=== PATIENT | female | born 1975 | race Caucasian/White ===

== ENCOUNTER 2020-05-22 08:49 | Outpatient (CLI) | payer BC, SELFPAY ==
--- NOTE | ~2020-05-22 | MM_ITS ---
EXAMINATION: MM screening [facility] BI w sandor HISTORY: Screening TECHNIQUE: Craniocaudal and mediolateral oblique 3-D tomosynthesis images were obtained and synthetic 2-D images were generated. CAD analysis was submitted and interpreted. COMPARISON: Comparison to multiple prior studies sequentially, with oldest reviewed study dated 03/2017. BREAST PARENCHYMAL COMPOSITION: The breasts are heterogeneously dense, which may obscure small masses . FINDINGS: There is no evidence of suspicious mass, calcification, or architectural distortion to sugg est malignancy in either breast. There has been no suspicious interval change. IMPRESSION: 1. No mammographic evidence of malignancy. 2. Recommend routine screening mammography in one year. BI-RADS Category 1: Negative Reviewed, dictated and finalized at location A.
== END 2020-05-22 08:50 | disposition home or self-care (01) ==
LOC: ANHIMG 08:53
PROVIDERS: PCP Internal Medicine; Visit Provider Obstetrics & Gynecology
DX: Z12.31 Encounter for screening mammogram for malignant neoplasm of breast (principal)
CPT/HCPCS: 77063; 77067

== ENCOUNTER 2021-02-03 08:28 | Outpatient (CLI) | payer BC, SELFPAY ==
--- NOTE | 2021-02-03 08:30 | ECG_ITS ---
Measurements Intervals [place] Rate: 70 P: 42 SD: 180 QRS: 53 QRSD: 93 T: 55 QT: 393 QTc: 425 Interpretive Statements SINUS RHYTHM BORDERLINE R WAVE PROGRESSION, ANTERIOR LEADS BORDERLINE T WAVE ABNORMALITY- ANTERIOR LEADS BORDERLINE ECG Electronically Signed On 02-03-2021 8:51:44 CDT by Patrice Levy D.O.
== END 2021-02-03 08:29 | disposition home or self-care (01) ==
LOC: ANHSURGERY 08:32
PROVIDERS: PCP Internal Medicine; Visit Provider Obstetrics & Gynecology
DX: I10 Essential (primary) hypertension (principal); Z01.818 Encounter for other preprocedural examination; R94.31 Abnormal electrocardiogram [ECG] [EKG]
CPT/HCPCS: 93005

== ENCOUNTER 2021-02-05 00:44 | Day surgery (SDC) | payer BC, SELFPAY ==
[2021-01-23 14:29] VITALS: BMI 23.3
[2021-02-05 10:11] VITALS: BP 120/74; PULSE 72; RESP 20; TEMP 36.7; O2SAT 100
[2021-02-05] MEDS: ACETAMINOPHEN 500 MG TABLET 1000 MG PO (10:17)
--- NOTE | 2021-02-05 10:49 | WPDANESEPPF ---
Anes - Initial Pre Proc Eval Procedure: Operation Date: 02/05/21 12:00 Proposed Procedures p Laparoscopic Bilateral Tubal Sterilization With Fallopian Rings, Removal Of Nexplanon - Damian Keane MD Date/Time: 02/05/21 10:49 Surgeon: Damian Keane MD Pre Op Diagnosis: Desires Sterilization Patient Data Age: 45 Gender: F Height: 1.57 m Weight: 57.4 kg Last Vital Signs Temp 36.7 C 02/05/21 10:11 Pulse 72 02/05/21 10:11 Resp 20 02/05/21 10:11 BP 120/74 02/05/21 10:11 Pulse Ox 100 02/05/21 10:11 Allergies Allergy/AdvReac Type Severity Reaction Status Date / Time No Known Allergies Allergy Mild Unverified 02/05/21 10:09 Home Medications Medication Instructions Recorded Confirmed Type escitalopram oxalate 20 mg PO DAILY 01/23/21 02/05/21 History metoprolol tartrate 25 mg PO DAILY 01/23/21 02/05/21 History Patient hx anesthesia problems: none Family hx anesthesia problems: none [facility] Past Medical History Medical History (Updated 02/05/21 @ 10:49 by Clive Mora MD) HTN (hypertension) Surgical History Surgical History (Updated 02/05/21 @ 10:49 by Clive Mora MD) History of bunionectomy Social History Social History Smoking status: Never smoker Substance use: never Substance use type: does not use Living arrangements: with family Gender identity (if verbalized by the patient): Female Sexual Orientation (if Verbalized by the Patient): Straight or Heterosexual Spiritual care concerns: No Anes - Eval Final PreProcedure Day of Procedure 02/05/21 10:49 Patient weight: normal Heart: regular rate and rhythm Lungs: clear to auscultation Airway: Mallampati scale class 1 Neurological: alert and oriented Last oral intake: >/= 8 hours ASA classification: II Emergent: no Anesthetic plan: proceed Anesthesia type and monitoring: general ETT and standard monitoring Informed Consent: The patient's anesthetic plan and its attendant risks and benefits were discussed with the patient/family/POA. Questions were solicited and answers provided to the satisfaction of the patient/family/POA.
[2021-02-05] MEDS: LACTATED RINGERS 1,000 ML 30 ML IV CONT ×2 (11:05→13:46)
[2021-02-05] MEDS: KETOROLAC 15 MG/ML VIAL (*BKC) IV PUSH (11:13)
--- NOTE | 2021-02-05 11:49 | PM.IMHP ---
H&P: HPI History of Present Illness Date/Time: 02/05/21 11:49 45 y/o desiring permanent contraception. She has a Nexplanon in place that she would like to have removed, and would like a laparoscopic bilateral tubal ligation. Chief Complaint: Here for tubal ligation Review of Systems Review of Systems: All systems reviewed & are unremarkable except as noted in HPI and below PMFSH Past Medical History Medical History HTN (hypertension) Surgical History Surgical History History of bunionectomy Social History Social History Smoking status: Never smoker Substance use: never Substance use type: does not use Living arrangements: with family Gender identity (if verbalized by the patient): Female Sexual Orientation (if Verbalized by the Patient): Straight or Heterosexual Spiritual care concerns: No Meds Home Medications and Allergies Home Medications Medication Instructions Recorded Confirmed Type escitalopram oxalate 20 mg PO DAILY 01/23/21 02/05/21 History metoprolol tartrate 25 mg PO DAILY 01/23/21 02/05/21 History Allergies Allergy/AdvReac Type Severity Reaction Status Date / Time No Known Allergies Allergy Mild Unverified 02/05/21 10:09 Vital Signs Vital Signs - 24 hr 02/05/21 10:11 Temperature 36.7 C Pulse Rate 72 Respiratory Rate 20 Blood Pressure 120/74 Pulse Oximetry 100 Exam Const: Orientation/consciousness: patient oriented x3 Other: Well-developed, well-nourished female in no acute distress. Neck: Thyroid: thyroid normal Lymphatic: no lymphadenopathy noted (in neck, axilla or inguinal nodes) Resp: Effort & Inspection: normal respiratory effort Auscultation: clear to auscultation bilaterally Cardio: Rate: regular rate Rhythm: regular rhythm Heart sounds: S1 normal heart sound present and S2 normal heart sound present GI: Other: ABD: Soft, nontender, nondistended. No guarding or rebound tenderness. No hepatosplenomegaly. : General: Yes no CVA tenderness Other: External genitalia: normal female hair distribution, without lesion. Urethral meatus: no lesion, non prolapsed. Bladder: no mass, nontender Vagina: well-estrogenized, without lesion or discharge. No cystocele or rectocele. Cervix: no lesion or discharge. Uterus: small, anteverted, freely mobile, nontender Adnexa: no mass or tenderness. Anus/perineum: no lesions, nontender Back/Spine/Pelvis: Back: no CVA tenderness Skin: General skin exam: normal color and no rashes or lesions noted Neuro: General: patient oriented x3 Extrem: Other: Extremities: nontender with no edema Psych: Mental Status: mental status grossly normal Affect: normal affect Assessment and Plan Assessment and plan (1) Unwanted fertility: Code(s): Z30.09 - Encounter for other general counseling and advice on contraception Status: Acute Assessment and Plan: A: Desired sterility. P: She understands there are temporary methods of contraception available to her. She understands that there are nonsurgical options as well as surgical options. She understands that tubal ligation will render her permanently sterile. She understands that there is a failure rate associated with tubal ligation, as well as an inherent ectopic gestation risk. Furthermore, she understands risks of surgery to include risks of anesthesia, risks of pain, infection, bleeding, blood products, thromboembolic phenomena and damage to adjacent structures such as bowel, bladder, ureters, blood vessels and nerves. She understands all these risks and elects to proceed with removal of Nexplanon and laparoscopic bilateral tubal ligation. She has received the ACOG pamphlet on surgical sterilization.
--- NOTE | 2021-02-05 12:09 | SUR.PREOP ---
1145-PT AWARE DR. LEAVITT IS DELAYED BY PREVIOUS SURGEON ~45 MINUTES.
--- NOTE | 2021-02-05 12:49 | WPDHPUPDATE1 ---
History and Physical Update Update Date/Time: 02/05/21 12:49 History and Physical has been reviewed, including an updated exam of the patient. There are NO changes in the patient's condition. Risks, benefits, and alternatives have been discussed and questions answered. Patient agrees to proceed with procedure.
[2021-02-05] MEDS: LIDO 1%/EPINEPHRINE 1:100,000 20 ML VIAL 50 ML INFILTRATE (13:34)
[2021-02-05 13:46] VITALS: BP 122/72; PULSE 102; RESP 20; TEMP 36.3; O2SAT 100
--- NOTE | 2021-02-05 13:46 | P.OP_ITS ---
Procedure Note - Detailed Date of Procedure 02/05/21 Pre-op Diagnosis Desires Sterilization Post-op Diagnosis same Procedure Performed Laparoscopic bilateral tubal ligation using Falope rings Removal of Nexplanon contraceptive implant Surgeon Damian Keane MD Anesthesia general and local (1% lidocaine) Indications Desired sterility Findings Gallbladder a little enlarged. Liver and vermiform appendix normal-appearing. Normal-appearing uterus, bilateral tubes and ovaries, bilateral round and uterosacral ligaments, anterior and posterior cul de sac. Nexplanon dayna intact. Description of Procedure The patient was taken to the operating room where general endotracheal anesthesia was administered. She was prepared and draped in the usual sterile fashion in dorsal lithotomy position. The bladder was drained with a red rubber catheter. A sterile speculum was placed into the vagina. The anterior lip of the cervix was grasped with a single-tooth tenaculum. The acorn uterine manipulator was placed. The speculum was withdrawn. Gloves were changed and attention was turned the abdomen. An infraumbilical skin incision was made with a scalpel. The abdomen was tented and a 5mm bladeless trocar was advanced under direct laparoscopic visualization. Pneumoperitoneum was administered using carbon dioxide gas. A survey of the pelvis and abdomen revealed the findings noted above. A second skin incision was made in the midline above the symphysis pubis and an 8mm bladeless trocar was advanced under direct laparoscopic visualization. The fallopian tube on the right side was followed out to the f imbriated end for identification. It was then grasped in the midportion with the Falope ring applicator. The Falope ring was tented applied. A good loop of tube was noted to be distal to the ring. Hemostasis was excellent. The device was reloaded and the contralateral tube was similarly identified and ligated. An excellent application was noted here as well. A total of 3mL of 1% lidocaine was infiltrated into the serosa of the proximal tubes for postoperative anesthesia. The ports were withdrawn. The gas was allowed to escape. The skin incisions were reapproximated using interrupted subcuticular sutures of 4 0 Vicryl. Dermaflex was applied externally. The vaginal instrumentation was withdrawn and hemostasis was excellent here as well. Sponge, lap, needle and instrument counts were correct. Attention was then directed to the left arm. The arm was prepped and draped. The Nexplanon contraceptive dayna was easily palpable. The site was infiltrated with an additional 2 mL of 1% lidocaine. A stab incision was made with the #11 scalpel. A curved hemostat was used to grasp the Nexplanon dayna. It was easily removed, intact, and discarded. The incision was reapproximated with Dermabond. A pressure dressing was applied. Sponge, needle and instrument counts were again correct. The patient was awakened and taken to recovery room in stable condition. I was present and scrubbed through the entire procedure. Implants Falope rings x 2 Estimated Blood Loss 5 Drains No Packing No Pathology none sent Complications None Condition stable Disposition PACU
[2021-02-05 14:00] VITALS: BP 119/75; PULSE 89; RESP 12; O2SAT 100
[2021-02-05 14:15] VITALS: BP 123/78; PULSE 89; RESP 12; O2SAT 100
[2021-02-05 14:26] VITALS: BP 121/82; PULSE 81
[2021-02-05 14:55] VITALS: BP 120/78; PULSE 73
== END 2021-02-05 15:05 | disposition home or self-care (01) ==
PROVIDERS: PCP Internal Medicine; Visit Provider Obstetrics & Gynecology
PROC: (CPT 58671; principal; 2021-02-05 12:00)
DX: Z30.2 Encounter for sterilization (principal); Z30.49 Encounter for surveillance of other contraceptives; I10 Essential (primary) hypertension
CPT/HCPCS: 11982; 58671; 93005; A4264; A9270; J0330; J1100; J1885; J2250; J2405; J2704; J3010; J7120

== ENCOUNTER 2021-06-23 09:04 | Outpatient (CLI) | payer BC, SELFPAY ==
--- NOTE | ~2021-06-23 | MM_ITS ---
EXAMINATION: MM screening [facility] BI w sandor HISTORY: Screening mammogram TECHNIQUE: Craniocaudal and mediolateral oblique 3-D tomosynthesis images were obtained and synthetic 2-D images were generated. CAD analysis was submitted and interpreted. COMPARISON: 05/22/2020, 04/27/2019 BREAST PARENCHYMAL COMPOSITION: The breasts are heterogeneously dense, which may obscure small masses . FINDINGS: There is no evidence of suspicious mass, calcification, or architectural distortion to sugg est malignancy in either breast. There has been no suspicious interval change. IMPRESSION: 1. No mammographic evidence of malignancy. 2. Recommend routine screening mammography in one year. BI-RADS Category 1: Negative Reviewed, dictated and finalized at location A. 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
== END 2021-06-23 09:05 | disposition home or self-care (01) ==
PROVIDERS: PCP Internal Medicine; Visit Provider Obstetrics & Gynecology
DX: Z12.31 Encounter for screening mammogram for malignant neoplasm of breast (principal)
CPT/HCPCS: 77063; 77067

== ENCOUNTER → 2022-07-20 10:46 | Outpatient (CLI) | payer BC, SELFPAY ==
--- NOTE | ~2022-07-20 | CT_ITS ---
CT of the Abdomen and Pelvis: Indication: Gross hematuria Technique: 5 mm axial scans were obtained through the abdomen and pelvis prior to and following intr avenous administration of 130 cc of Omnipaque 350. Dose reduction technique was used on this scan by utilizing automated exposure control and iterative reconstruction technique. The dose-length product (DLP) was 866.81 mGy-cm. Findings: Scans through the lung bases are unremarkable. The liver, pancreas, gallbladder, adrenals and kidneys are within normal limits. Multiple calcified s plenic granulomas are noted. Both ureters are completely opacified, and unremarkable. No evidence of aortic aneurysm. No lymphadenopathy. No bowel obstruction or bowel wall thickening. There is no evidence to suggest acute appendicitis. Images through the pelvis were performed. Urinary bladder unremarkable. No adnexal mass identified. N o ascites. Impression: No significant abnormality of the system identified. Calcified splenic granulomas. [place]ed, dictated [place] [facility] 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 Calcified splenic granulomas.
--- NOTE | ~2022-07-20 | XR_ITS ---
Supine and upright views of the abdomen Clinical history: Gross hematuria Findings: Bowel gas pattern is nonspecific. No evidence for obstruction or free air. Calcified spleni c granulomas noted. No other abnormal calcifications seen. Osseous structures are intact. Impression: Calcified splenic granulomas. No other significant findings. Reviewed, dictated and finalized at [facility]. ER ON Impression: Calcified splenic granulomas. No other significant findings.
[2022-07-20 11:19] LABS: Estimated Glomerular Filt Rate > 60
== END ==
PROVIDERS: PCP Internal Medicine; Visit Provider Nurse Practitioner Family
DX: R31.0 Gross hematuria (principal)
CPT/HCPCS: 74018; 74178; Q9967

== ENCOUNTER 2022-09-09 08:47 | Outpatient (CLI) | payer BC, SELFPAY ==
--- NOTE | ~2022-09-09 | MM_ITS ---
EXAMINATION: MM screening [facility] BI w sandor HISTORY: Screening TECHNIQUE: Craniocaudal and mediolateral oblique 3-D tomosynthesis images were obtained and synthetic 2-D images were generated. CAD analysis was submitted and interpreted. COMPARISON: Comparison to multiple prior studies sequentially, with oldest reviewed study dated 03/2017. BREAST PARENCHYMAL COMPOSITION: The breasts are heterogeneously dense, which may obscure small masses . FINDINGS: There is no evidence of suspicious mass, calcification, or architectural distortion to sugg est malignancy in either breast. There has been no suspicious interval change. IMPRESSION: 1. No mammographic evidence of malignancy. 2. Recommend routine screening mammography in one year. BI-RADS Category 1: Negative Reviewed, dictated and finalized at location A. 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
== END 2022-09-09 08:48 | disposition home or self-care (01) ==
LOC: ANHIMG 08:50
PROVIDERS: PCP Internal Medicine; Visit Provider Obstetrics & Gynecology
DX: Z12.31 Encounter for screening mammogram for malignant neoplasm of breast (principal)
CPT/HCPCS: 77063; 77067

== ENCOUNTER 2023-11-08 08:48 | Outpatient (CLI) | payer BC, SELFPAY ==
--- NOTE | ~2023-11-08 | MM_ITS ---
EXAMINATION: MM screening [facility] BI w sandor HISTORY: Screening TECHNIQUE: Craniocaudal and mediolateral oblique 3-D tomosynthesis images were obtained and synthetic 2-D images were generated. CAD analysis was submitted and interpreted. COMPARISON: Comparison to multiple prior studies sequentially, with oldest reviewed study dated 06/09. BREAST PARENCHYMAL COMPOSITION: Dense: The breasts are extremely dense, which lowers the sensitivity of mammography. FINDINGS: There is no evidence of suspicious mass, calcification, or architectural distortion to sugg est malignancy in either breast. There has been no suspicious interval change. IMPRESSION: 1. No mammographic evidence of malignancy. 2. Recommend routine screening mammography in one year. BI-RADS Category 1: Negative Reviewed, dictated and finalized at location A.
== END 2023-11-08 08:49 | disposition home or self-care (01) ==
LOC: ANHIMG 08:51
PROVIDERS: PCP Internal Medicine; Visit Provider Obstetrics & Gynecology
DX: Z12.31 Encounter for screening mammogram for malignant neoplasm of breast (principal)
CPT/HCPCS: 77063; 77067

== ENCOUNTER 2024-11-09 07:52 | Outpatient (CLI) | payer BC, SELFPAY ==
--- NOTE | ~2024-11-09 | MM_ITS ---
EXAMINATION: MM screening gonzález BI w sandor HISTORY: Screening TECHNIQUE: Craniocaudal and mediolateral oblique 3-D tomosynthesis images were obtained and synthetic 2-D images were generated. CAD analysis was submitted and interpreted. COMPARISON: Comparison to multiple prior studies sequentially, with oldest reviewed study dated 04/19. BREAST PARENCHYMAL COMPOSITION: Dense: The breasts are extremely dense, which lowers the sensitivity of mammography. FINDINGS: There is no evidence of suspicious mass, calcification, or architectural distortion to sugg est malignancy in either breast. There has been no suspicious interval change. IMPRESSION: 1. No mammographic evidence of malignancy. 2. Recommend routine screening mammography in one year. BI-RADS Category 1: Negative Reviewed, dictated and finalized at location A.
--- OUTSIDE RECORDS SUMMARY | 2024-11-09 08:00 | XMS_ITS | Encounter Summary ---
Author Organization [facility] Facility Care Team Providers Care Supervisor Small Appliance Assembly Name Role Phone Darshana Dominguez Primary Care Provider [phone] Chino Casey MD Unavailable + [phone] Encounter Details Date Type Department Care Team (Latest Contact Info) Description 10/13/2018 Orders Only [facility] CLINCON[facility] ProviderBrenna MD [address] [place] [id number] Social History Tobacco Use Types Packs/Day Years Used Date Smoking Tobacco: Never Assessed Comments Unknown Sex and Gender Information Value Date Recorded Sex Assigned at Not on file 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 Historical Provider [facility] TANVI JIMENEZ Final Result documented in this encounter Visit Diagnoses Not on filedocumented in this encounter Care Teams Supervisor Small Appliance Assembly Relationship Specialty Start Date End Date Darshana Dominguez PA [address] [place], [place] [id number] PCP - General 10/07/18 Chino Casey MD [address] [place] [address] Consulting Physician Family Medicine 01/18/19 documented as of this encounter
--- OUTSIDE RECORDS SUMMARY | 2024-11-09 08:00 | XMS_ITS | Clinical Summary ---
Author Organization [address] Address [address] [place] [id number] Care Team Providers Care Dairy Grazer Name Role Phone Darshana Dominguez Primary Care Provider Chino Casey MD Unavailable [phone]- [phone] Allergies No known active allergies Medications etonogestrel (NEXPLANON) 68 mg implantIndications : Contraception Active metoprolol XL (TOPROL-XL) 25 mg 24 hr tabletIndications: Hypertension, essential Take 1 tablet (25 mg total) by mouth daily 90 tablet 3 9 Active escitalopram (LEXAPRO) 10 mg tabletIndications: Situational anxiety TAKE 1 TABLET BY MOUTH EVERY DAY 90 tablet 1 9 Active Active Problems Problem Noted Date Diagnosed Date BMI 20.0-20.9, adult 01/18/2019 Assessment & Plan (01/18/2019 9:41 AM CDT): BMI is okay. Normal range is 18-25 and overweight is 25-30. Continue to work on eating healthy and exercising at least 150 minutes per week. Health maintenance examination 01/08/2019 Overview (01/08/2019): PMH:10/28/2018 Last pap:09/2018 senior technologist Last mammogram:04/2018 Last dexa: Last colonoscopy/cologuard: Last tdap:01/12/2011 Last Prevnar/pneumovax: Last Shingrix: Last eye exam: HTN (hypertension), benign 10/14/2018 Assessment & Plan (01/18/2019 9:32 AM CDT): Hypertension is improving with treatment. Continue current treatment regimen. Dietary sodium restriction. Regular aerobic exercise. Continue current medications. Blood pressure will be reassessed at the next regular appointment. Situational anxiety 10/14/2018 Assessment & Plan (01/18/2019 9:32 AM CDT): Patient will increase Lexapro to 15 mg daily. Take this for 4 weeks. If doing well will see her back in 3 months. If wants to increase to 20 mg then to notify the office. Vitamin D deficiency 06/11/2017 Assessment & Plan (01/18/2019 9:32 AM CDT): Stable: Continue on current dose of vitamin D3. Immunizations Immunization Administration Dates Next Due Influenza, Quadrivalent, Promise l Culture-based MDCK, Preservative Free, Antibiotic Free, Intramuscular 05/26/2018 Influenza, Quadrivalent, Split, Intramuscular Influenza, Quadrivalent, Spl it, Preservative Free, Intramuscular 05/26/2017 Tdap 01/12/2011 Surgical History Surgery Date Site/Laterality Comments BUNIONECTOMY 08/09/1998 - 08/08/1999 Bilateral WISDOM TOOTH EXTRACTION Medical History Medical History Date Comments HTN (hypertension), benign 10/14/2018 Situational anxiety 10/14/2018 Vitamin D deficiency 06/11/2017 IBS (irritable bowel syndrome) Anemia Fracture of arm left Vasovagal episode Family History Medical History Relation Name Comments Heart disease Father Hyperlipidemia Father Diabetes Maternal Grandfather Colon cancer Maternal Grandmother Ovarian cancer Maternal Grandmother Hypertension Mother Heart attack Paternal Grandfather Aneurysm Paternal Grandmother Relation Name Status Comments Father Alive Maternal Grandfather Maternal Grandmother Mother Alive Paternal Grandfather Paternal Grandmother Sister 1 Alive Sister 2 Alive Social History Tobacco Use Types Packs/Day Years Used Date Smoking Tobacco: Former Smokeless Tobacco: Never Alcohol Use Standard Drinks/Week Comments Yes 0 (1 standard drink = 0.6 oz pur e alcohol) AUDIT-C Answer Date Recorded Frequency of Alcohol Consumption 2-3 times a wee k 01/18/2019 Average Number of Drinks Not on file 019 Frequency of Binge Drinking Not on file 01/07 PHQ-2 Answer Date Recorded PHQ-2 Score 0 04/01/2019 Comments No Sex and Gender Information Value Date Recorded Sex Assigned at Not on file 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 Gender Identity Not on file Sexual Orientation Not on file Obstetrics History Last Filed Vital Signs Vital Sign Reading Time Taken Comments Blood Pressure 108/76 01/18/2019 8:24 AM CDT Pulse 80 01/18/2019 8:24 AM CDT Temperature 36.8 C (98.2 F) 01/18/2019 8:24 AM CDT Respiratory Rate 16 01/18/2019 8:24 AM CDT Oxygen Saturation 99% 01/18/2019 8:24 AM CDT Inhaled Oxygen Concentration - - Weight 51.4 kg (113 lb 4.8 oz) 01/18/2019 8:24 A M CDT Height 158.8 cm (5' 2.5 ) 01/18/2019 8:24 AM CDT Body Mass Index 20.39 01/18/2019 8:24 AM CDT Plan of Treatment Not on file Insurance Care Teams Dairy Grazer Relationship Specialty Start Date End Date Darshana Dominguez PA [address] [place] [address] PCP - General 10/07/18 Chino Casey MD [address] [place] [address] Consulting Physician Family Medicine 01/18/19
--- OUTSIDE RECORDS SUMMARY | 2024-11-09 08:00 | XMS_ITS | Clinical Summary ---
Author Organization [facility] Address [facility] [place] [address] Care Team Providers Care Fundraising Coordinator Name Role Phone Gabrielle Garcia Primary Care Provider [phone] Allergies No known active allergies Medications metoprolol tartrate 25 MG tablet Take 25 mg by mouth daily. 3 04/26/2019 Active escitalopram 10 MG tablet Take 15 mg by mouth daily. 1 04/20/2019 Active Social History Tobacco Use Types Packs/Day Years Used Date Smoking Tobacco: Never Smokeless Tobacco: Never Alcohol Use Standard Drinks/Week Comments Yes 0 (1 standard drink = 0.6 oz pur e alcohol) on occassion Comments Unknown Sex and Gender Information Value Date Recorded Sex Assigned at Not on file Legal Sex Female 7:00 PM CDT Gender Identity Not on file Sexual Orientation Not on file Last Filed Vital Signs Vital Sign Reading Time Taken Comments Blood Pressure 126/76 07/12/2019 3:40 PM [facility] Pulse 68 07/12/2019 3:40 PM [facility] Temperature 36.7 C (98 F) 07/12/2019 3:17 PM [facility] Respiratory Rate 13 07/12/2019 3:40 PM [facility]IST Oxygen Saturation 100% 07/12/2019 3:40 PM [facility]IST Inhaled Oxygen Concentration - - Weight 53.5 kg (118 lb) 07/07/2019 3:11 PM [facility] Height 157.5 cm (5' 2 ) 07/07/2019 3:11 PM [facility] Body Mass Index 21.58 07/07/2019 3:11 PM [facility] Plan of Treatment Health Maintenance Due Date Last Done Comments Cervical Cancer Screening Pa p Smear (Age 30 to 64) Every 3 Years 1977 Annual Physical 1980 Hepatitis C 1995 Hepatitis B Vaccines (1 of 3 - 19+ 3-dose series) 1996 Cervical Cancer Screening Pa p with HPV Testing (Age 30 to 64) Every 5 Years 2007 Cervical Cancer Screening wi th HPV 2007 Mammogram Screening 2017 DTaP, Tdap and Td Vaccines ( 2 - Td or Tdap) 01/12/2021 01/12/2011 COVID-19 Vaccine ( - 2023-2 5 season) 2024 Influenza Adult (#1) 2024 05/26/2018, 05/26/2017, 05/24/2016 Colorectal Cancer Screening Colonoscopy (10 Years) 07/12/2029 07/12/2019, 07/12/2019 Meningococcal B Vaccine Aged Out No l onger eligible based on patient's age to complete this topic Meningococcal Vaccine Aged Out No xiomara jaqueline eligible based on patient's age to complete this topic Pneumococcal Vaccine: Pediatrics (0 to 5 Years) and At-Risk Patients (6 to 64 Years) Aged Out No longer eligible b ased on patient's age to complete this topic RSV Immunizations Under 20 Months Aged Out No longer eligible b ased on patient's age to complete this topic Procedures Procedure Name Priority Date/Time Associated Diagnosis Comments COLONOSCOPY Routine 07/12/2019 2:46 PM COMMISSION SPECIALIST from Last 3 Months or Most Recently Relevant to Health Maintenance Results * Colonoscopy (07/12/2019 2:46 PM COMMISSION SPECIALIST) Narrative Otto Salcido MD - 07/12/2019 2:46 PM COMM[facility]ION [facility]IST Otto Salcido MD 07/12/2019 3:09 PM OTTO SALCIDO MD, FACG, FACP COLONOSCOPY INDICATION: Altered bowel habits, bloating and hematochezia. POST-OP: Normal. SEDATION: Per Anesthesia PREP: Good. With the patient in the left lateral decubitus position, the Olympus [id number] colonoscope was introduced into the rectum and advanced easily to the Terminal Ileum. Careful inspection of the mucosa was made upon insertion and withdrawal of the endoscope. FINDINGS: Terminal ileum: distal 5 cm normal. Cecum, ascending colon, transverse colon, descending colon, sigmoid colon and rectum including retroflexion normal. No masses, polyps, AVMs, colitis or diverticulosis seen. No complications, blood loss or implants ASSESSMENT AND PLAN: A. Altered bowel habits, bloating: - Not improved with probiotic; patient is not using Magnesium - Has constipation predominance; try Benefiber B. Normal screening colonoscopy: screening colonoscopy in 10 years. C. Hematochezia: - Likely secondary to hemorrhoids not seen on endoscopy - Treat symptomatically Thank you very much for allowing me to share in the care of your patient. The patient will follow-up with my office in one month. Otto Salcido M.D. us Otto Salcido MD GI PROCEDURE ORDERABLES Fin al Result from Last 3 Months or Most Recently Relevant to Health Maintenance Insurance [facility] Care Teams Fundraising Coordinator Relationship Specialty Start Date End Date Gabrielle Garcia DO [address] [place] [id number] PCP - General INTERNAL MEDICINE 07/11/19
--- OUTSIDE RECORDS SUMMARY | 2024-11-09 08:00 | XMS_ITS | Continuity of Care Document ---
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 [employer] Name Role Phone Gabrielle Garcia DO Unavailable Unavailable Allergies, Adverse Reactions, Alerts Substance Reaction Status Criticality No Known Allergies Active No Inform ation Medications Medication Instructions Dosage Effective Dates (start - stop) Status Comments BUPROPION HCL XL 150 MG TABLET TAKE 1 TABLET BY MOUTH EVERY DAY - Active triamcinolone acetonide 0.1 % topical cream apply by topical route twice a day a thin layer to the affected area(s) - Active Medrol (Dante) 4 mg tablets in a dose pack take 1 by Oral route once as directed 1 - Active METOPROLOL TARTRATE 25 MG TAB TAKE 1 TABLET BY MOUTH EVERY DAY - Active Probiotic 10 billion cell capsule take 1 capsule by oral route every day 1 capsule - Active multivitamin capsule take 2 capsule by oral route every day - Active Vitamin D3 5,000 unit tablet take 1 tablet by oral route every day 1 tablet - Active Procedures Procedure Date OFFICE [id number]-[id number]-[id number] BODY MASS INDEX DOCD SYST BP LT 130 MM HG DIAST BP < 80 MM HG GENERAL HEALTH PANEL LIPID PANEL VITAMIN D, 25-HYDROXY Oct-17-2024 Pt inelig neg scrn depres URINALYSIS, DIPSTICK (UA) - Office Lab O ROUTINE VENIPUNCTURE IL PREVENTATIVE-EST: 4064 BODY MASS INDEX DOCD SYST BP LT 130 MM HG DIAST BP < 80 MM HG GENERAL HEALTH PANEL HEMOGLOBIN A1C HGA1C, GLYCO VITAMIN D, 25-HYDROXY Pt inelig neg scrn depres URINALYSIS, DIPSTICK (UA) - Office Lab O ROUTINE VENIPUNCTURE IL BODY MASS INDEX DOCD SYST BP LT 130 MM HG DIAST BP < 80 MM HG PREVENTATIVE-EST: 4064 COVID-19, Amplified Probe Technique STREP A, DNA, AMP PROBE OFFICE [id number] SYST BP LT 130 MM HG DIAST BP < 80 MM HG URINALYSIS W MICROSCOPIC (UA) OFFICE MMOAI-IPG-OAYNVHDH BODY MASS INDEX DOCD SYST BP LT 130 MM HG DIAST BP < 80 MM HG Pt inelig neg scrn depres IMMUN ADMIN (INC PERCUTANEOUS) SINGLE, F IRST INJ FLU VACC 4 JULIA 0.5mL DOSAGE GENERAL HEALTH PANEL LIPID PANEL VITAMIN D, 25-HYDROXY URINALYSIS, DIPSTICK (UA) - Office Lab O ROUTINE VENIPUNCTURE PREVENTATIVE-EST: 4064 OFFICE [id number]-MWJ-HBIGANHS BODY MASS INDEX DOCD SYST BP LT 130 MM HG DIAST BP < 80 MM HG IMMUN ADMIN (INC PERCUTANEOUS) SINGLE, F IRST INJ FLU VACC 4 JULIA 0.5mL DOSAGE Pt inelig neg scrn depres GENERAL HEALTH PANEL LIPID PANEL URINALYSIS, REFLEX (UA) VITAMIN D, 25-HYDROXY ROUTINE VENIPUNCTURE PREVENTATIVE-EST: 40-64 BODY MASS INDEX DOCD SYST BP LT 130 MM HG DIAST BP < 80 MM HG OFFICE HGMCO-IFO-DNBXVZIN OFFICE [id number]-[id number]-[id number] BODY MASS INDEX DOCD SYST BP LT 130 MM HG DIAST BP < 80 MM HG Pt inelig neg scrn depres IMMUN ADMIN (INC PERCUTANEOUS) SINGLE, F IRST INJ FLU VACC 4 JULIA 0.5mL DOSAGE OFFICE [id number]-ZRE-UFUWVQPO BODY MASS INDEX DOCD SYST BP LT 130 MM HG DIAST BP < 80 MM HG GENERAL HEALTH PANEL LIPID PANEL VITAMIN D, 25-HYDROXY ROUTINE VENIPUNCTURE PREVENTATIVE-EST: 4064 BODY MASS INDEX DOCD SYST BP LT 130 MM HG DIAST BP < 80 MM HG OFFICE [id number]-OCJ-LNUAGFIN BODY MASS INDEX DOCD SYST BP LT 130 MM HG DIAST BP < 80 MM HG Pt inelig neg scrn depres GENERAL HEALTH PANEL HEMOGLOBIN A1C HGA1C, GLYCO LIPID PANEL URINALYSIS, REFLEX (UA) VITAMIN D, 25-HYDROXY ROUTINE VENIPUNCTURE OFFICE [id number]-FDB-[id number]-MED BODY MASS INDEX DOCD SYST BP LT 130 MM HG DIAST BP 80-89 MM HG Advance Directives Directive Yes / No Effective Date File Name Life Support Not Answered N/A N/A Intubation Not Answered N/A N/A Antibiotics Not Answered N/A N/A IV Fluid Support Not Answered N/A N/A Tube Feed Not Answered N/A N/A Other Directive N/A N/A WARNING:The information contained in this section is historical and is provided for information only and does not constitute a legal document or any assurance that the information is still accurate. Please verify the information with the beck of the legal document before using it for clinical purposes. Encounters Encounter Description Practice Location Reason(s) For Visit Diagnoses Date Provider Providers Copied on Encounter [facility], [address], [place], [place], [id number] , tel: [phone] [facility] No Information Oct- 5 Radha Anthony. [address] [place] [address], [id number] , [place]. tel: [phone] [facility], [address], [place], [place], [address] , [place] tel: [phone] [facility] Information Oct- 5 Radha Anthony. [address] [place] [address], [id number] , [place]. tel: [phone] OFFICE IQSQW-TQO-WX PANDED [facility], [address], [place], [place], [address] , tel: [phone] [facility] Rash (chief complaint) Rash and nonspecific skin eruption Oct-0 5 Jessica Robert. [address] [place] [address], [address], [place]. tel: [phone] Referring Provider: Gabrielle Sigala, [address] [place] [address], [address] . tel:[phone] [facility], [address], [place], [place], [address] , [place] tel: [phone] [facility] No Information 5 Radha Anthony. [address] [place] [address], [id number] , [place]. tel: [phone] [facility], [address], [place], [place], [address] , [place] tel: [phone] [facility] No Information 4 Radha Anthony. [address] [place] [address], [id number] , [place]. tel: [phone] [facility] [address], [place], [place], [address] , [place] tel: [phone] [facility] No Information 4 Yasmine Farmer. [address] [place] [address], [place], [place], [address] , . tel: [phone] Referring Provider: Gabrielle Sigala, [address] [place] [address], [address] . tel:[phone] PREVENTATIVE -EST: 40-64 [facility], [address], [place], [place], [address] , tel: [phone] [facility] preventive exam (chief complaint)O ther (chief complaint)C hronic Conditions (chief complaint) Encounter for general adult medical examination without abnormal findingsVitamin D deficiency, unspecifiedHyperli pidemia, unspecifiedGeneral ized anxiety disorder 4 Radha Anthony. [address] [place] [address], [id number] , [place]. tel: [phone] Referring Provider: Gabrielle Sigala, [address] [place] [address], [address] . tel:[phone] [facility], [address], [place], [place], [address] , [place] tel: [phone] [facility] No Information 4 Radha Anthony. [address] [place] [address], [id number] , [place]. tel: [phone] [facility], [address], [place], [place], [address] , tel: [phone] [facility] No Information 3 Yasmine Farmer. [address] [address], [place], [place], [address] , [place]. tel: [phone] Referring Provider: Gabrielle Sigala, [address] [place] [address], [address] . tel:[phone] PREVENTATIVE -EST: 40-64 [facility], [address], [place], [place], [address] , [place] tel: [phone] [facility] preventive exam (chief complaint)O ther (chief complaint)C hronic Conditions (chief complaint) Encntr for general adult medical exam w/o abnormal findingsPalpitatio nsGeneralized anxiety disorderVitamin D deficiency, unspecified 3 Radha Anthony. [address] [place] [address], [id number] , [place]. tel: [phone] Referring Provider: Gabrielle Sigala, [address] [place] [address], [address] . tel:[phone] OFFICE RNMQM-DNS-RB PANDED [facility], [address], [place], [place], [address] , [place] tel: [phone] [facility] sore throat. (chief complaint) Acute pharyngitis, unspecified etiology Nov-2 3 Gary Juárez. [address] [place] [address], [id number] , [place]. tel: [phone] Referring Provider: Gabrielle Sigala, [address] [place] [address], [address] . tel:[phone] OFFICE JUQDQ-ASH-OC TAILED [facility], [address], [place], [place], [address] , tel: [phone] [facility] 4 week (chief complaint) AnxietyUrinary stream slowingUrinary urgencyFamily history of ovarian cancerEssential (primary) hypertensionMicros copic hematuria 2 Jessicaperez Robert. [address] [place] [address], [address], . tel: [phone] Referring Provider: Gabrielle Sigala, [address] [place] [address], [address] . tel:[phone] [facility], [address], [place], [place], [address] , tel: [phone] [facility] No Information 2 Radha Anthony. [address] [place] [address], [id number] , . tel: [phone] PREVENTATIVE -EST: [facility], [address], [place], [place], [address] , tel: [phone] [facility] preventive exam (chief complaint)o ther (chief complaint)C hronic Conditions (chief complaint) Annual physical examHyperlipidemia , unspecified hyperlipidemia typeEssential (primary) hypertensionVitami n D deficiencyGenerali zed anxiety disorder 2 Radha Anthony. [address] [place] [address], [id number] , [place]. tel: [phone] Referring Provider: Gabrielle Sigala, [address] [place] [address], [address] . tel:[phone] PREVENTATIVE -EST: [facility], [address], [place], [place], [address] , tel: [phone] [facility] annual physical exam (chief complaint)C hronic Conditions (chief complaint) Annual physical examAnxietyEssenti al (primary) hypertensionPalpit ationsInsomnia, unspecified typeVitamin D deficiencyHyperlip idemia, unspecified hyperlipidemia type Oct-0 1 Gary Juárez. [address] [place] [address], [id number] , . tel: [phone] Referring Provider: Gabrielle Sigala, [address] [place] [address], [address] . tel:[phone] OFFICE ARYBZ-RBJ-JO [facility], [address], [place], [place], [address] , tel: [phone] [facility] Chronic Conditions (chief complaint) Essential (primary) hypertensionAnxiet yPalpitationsBirth control counseling 1 Jessica Robert. [address] [place] [address], [address], . tel: [phone] Referring Provider: Gabrielle Sigala, [address] [place] [address], [address] . tel:[phone] OFFICE EIEZO-MNX-GJ [facility], [address], [place], [place], [address] , tel: [phone] [facility] Chronic Conditions (chief complaint) Essential hypertensionInsomn ia, unspecified typePalpitationsAn xiety Apr-2 0 Radha Anthony. [address] [place] [address], [id number] , [place]. tel: [phone] Referring Provider: Gabrielle Sigala, [address] [place] [address], [address] . tel:[phone] [facility], [address], [place], [place], [address] , tel: [phone] [facility] Essential hypertensionAnxiet yEncounter for general adult medical examination without abnormal findings Sep-0 0 Radha Anthony. [address] [place] [address], [id number] , [place]. tel: [phone] Referring Provider: Gabrielle Sigala, [address] [place] [address], [place], [address] . tel:[phone] PREVENTATIVE -EST: 40-64 [facility], [address], [place], [place], [address] , tel: [phone] [facility] Chronic Conditions (chief complaint) Encounter for general adult medical examination without abnormal findingsEssential hypertensionPalpit ationsInsomnia, unspecified type Apr- 7-202 0 Radha Anthony. [address] [place] [address], [id number] , [place]. tel: [phone] Referring Provider: Gabrielle Sigala, [address] [place] [address], [place], [address] . tel:[phone] [facility], [address], [place], [place], [address] , tel: [phone] [facility] Chronic Conditions (chief complaint) Essential hypertensionChroni c diarrheaAnxiety Dec- 9 Davidson Hobbs. [address] [place] [address], [id number] , [place]. tel: [phone] Referring Provider: Gabrielle Sigala, [address] [place] [address], [place], [address] . tel: [facility], [address], [place], [place], [address] , tel: [phone] [facility] Chronic Conditions (chief complaint)o ther (chief complaint) AnxietyPalpitation sChronic diarrheaInsomnia, unspecified typeEssential hypertension Apr-201 9 Davidson Hobbs. [address] [place] [address], [id number] , [place]. tel: [phone] Referring Provider: Gabrielle Sigala, [address] [place] [address], [place], [address] . tel:[phone] Family History Family Member Type Diagnosis Age At Onset Maternal grandmother Problem (finding) malignant neopl asm of ovary Father Problem (finding) Irritable bowel syndrom e Father Problem (finding) hypercholesterolemia Mother Problem (finding) hypertension Paternal grandmother Problem (finding) Hearing deficie ncy Maternal grandmother Problem (finding) cancer of colon Father Problem (finding) coronary arterioscleros is Mother Problem (finding) Osteoarthritis Father Problem (finding) depression Mother Problem (finding) hypercholesterolemia Maternal grandfather Problem (finding) Diabetes mellit us Mother Problem (finding) depression Father Problem (finding) Cardiovascular disease Father Problem prostate cancer Mother Problem (finding) Alive and well Father Problem (finding) hypertension Mother Problem Crohn's Immunizations Vaccine Date Status Comments Pfizer Comirnaty COVID vaccine, juancarlos-sucrose, 30mcg/0.3mL dose, 12 years and older administered Note: [facility] ; Source: Other Provider Fluzone Trivalent, split virus, 0.5mL dosage administered Note: [facility] ; Source: Other Provider Fluzone Quad, split virus, 0.5mL dosage administered Note: [facility] ; Source: Other Provider Pfizer Comirnaty tri-sucrose COVID Vaccine 30 mcg/0.3 mL dose, 12+ years administered Note: [facility] ; Source: Other Provider Pfizer (Bivalent Booster) COVID Vac, 30mcg/0.3mL, 12+ years administered Note: [facility] ; Source: Other Provider Fluzone Quad, split virus, 0.5mL dosage administered Source: New Immuniza tion Record Pfizer (Bivalent Booster) COVID Vac, 30mcg/0.3mL, 12+ years [facility] ; Source: Other Provider Fluzone Quad, split virus, 0.5mL dosage administered Source: New Immuniza tion Record Pfizer-BioNTech COVID19 Vaccine, 0.3mL per dose, 2 doses, administered 21 days apart administered Note: [facility] ; Source: Other Provider Pfizer-BioNTech COVID19 Vaccine, 0.3mL per dose, 2 doses, administered 21 days apart administered Note: [facility] Source: Other Provider Nanda Thompson, split virus, 0.5mL dosage administered Source: New Immuniza tion Record Payers Payer name Insurance type Covered alliance party ID Authoriza tion(s) [place] [id number] BCBS [place] [id number] BCBS ACCESS BL [id number] BCBS ACCESS BL [id number] Social History Type Description Quantity Date Captured Comments Alcohol Use Details Unknown Caffeine Use Details Unknown Tobacco Use Status No Information Smoking Status No Information Sex Female Sexual Orientation Straight or heterosexual Gender Identity Female Chief Complaint And Reason For Visit No Information Reason For Referral Reason For Referral No Information Plan Of Treatment Date Type Action Status Referral Referred To: [place] [id number] [facility]
[address], [phone] Ordered: Referrals: Urology. Tray Langston MD. Evaluation/diagnostic/treatment - Level 3 Appointment date/timeframe: 10/06/2022 ordered Referral Referred To: Otto Salcido MD [address] [place] [address], [phone] Ordered: Referrals: Gastroenterology. Otto Salcido MD. Consult - Level 1 Appointment date/timeframe: 06/26/2019 ordered History Of Present Illness Encounter Date Complaint History Of Prese nt Illness Rash she ripped out t he carpet in her house a week ago and she is having a skin reaction it is on her face, neck, hands, and forearms throat is dry and itchy has been going on for about a week the rash on is red/or flesh colored and raised OTC hydrocortisone cream , and started flonase and zyrtec states that she was sneezing and having nasal drainageher throat feels tightno wheezing preventive exam Patient does not take calcium. Patient reports taking a vitamin D supplement daily. Patient does take multivitamins daily. Patient does not take Folic acid. The patient no longer uses tobacco. The patient does drink alcohol. Other pt due for:Adv c are planning - pt does not have LW/POA - pt interested on informationPAP - pt states most recent was in ecent visits:Mammogram - [facility] - appt:n/aVaccinations due:TD/TDAP - pt denies recentOutstanding referrals:n/a Chronic Conditions *See Chronic Conditions HPI preventive exam Patient does not take calcium. Patient reports taking a vitamin D supplement daily. Patient does take multivitamins daily. Patient does not take Folic acid. The patient no longer uses tobacco. The patient does drink alcohol. Chronic Conditions *See Chronic Conditions HPI Other pt due for:PAP - pt has not had recent examRecent visits:n/aFuture appt:n/aVaccinations due:TD/TDAP - pt denies [facility]Flu - [facility]COVID booster - Pfizer - [facility] 05/06/23Outstanding referrals:n/aQuestions:Lab results questions sore throat. Pt. came in toda y for a sore throat, This started yesterday, this morning is the worse and she had a very bad night with sleep, Pt. stated she has not taken any OTC medicine. pt. said, she has a little sinus drainage, her nose is not running, pt. feels hot and ache. pt. has sore throat, We did a strep test is was negative. 4 week Patient is here for 4-week follow-up.At her yearly physical last month, it was discussed that her escitalopram be weaned and switched to Wellbutrin for anxiety.States anxiety symptoms are improvedStates urine output is decreased - noticed with lexaprofeels she can't push out the urine.Constipation- has had IBS since teenager.Denies blood in urine or stoolDenies burning with urination. unsure about increased frequency.She has an urgency. Feels the stream is different.she had 2 vaginal births. youngest is 15. no apparent urinary issues after that.endorses stress incontinence.maternal gma with ovarian cancer.last pap was summer 2020.doesn't remember having urinary symptoms at that time.she is unsure if she has early satiety- I am able to eat all the food on my plate.has bloating and pain on the lower sides of abdomen she attributes to ovulating midcycle. always feels bloated with the IBS.no fever, n/v no abd pain.with UTIs in past she has had to take cipro.She has hypertension. BP stable on metoprololhasn't had in years. preventive exam other pt. received a f cady injection today in the officept. has questions about her medicine today. 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 Damian Keane.Influenza and COVID vaccines are up-to-date; tetanus was reviewedShe reports staying active and eating a well balanced diet.Weight is normal. Chronic Conditions *See Chronic Conditions [facility] Chronic Conditions *See Chronic Conditions [facility] Chronic Conditions *See Chronic Conditions [facility] Chronic Conditions *See Chronic Conditions [facility] Chronic Conditions *See Chronic Conditions [facility] Chronic Conditions Chronic Conditions *See Chronic Conditions [facility] other Pt presented to establish new PCP; was previously followed by PCP in the area but wanted to changePMH: insomnia, anxiety, palpitations, IBS/chronic diarrheaFamily Hx: mother: depression, HTN, HLD, OA; father: CAD, depression, HTN, HLD, IBSSocial Hx: pt is former smoker for about 3-4 years during college, social alcohol about 1-2 drinks 3 days a week, denies drug useshe does not exercise regularly, follows regular dietshe is stay at home mother of 2 ages 14, 12Surgical Hx: bunionectomy 1998Health Maintenance/ Specialists: UTD with dentist, kobe OBPaigen 09/2018, mammogram scheduled tomorrowMedications: [id number] daily, lexapro 15mg daily, MVI, probiotic, Vitamin DAllergies: NKDAImmunizations: UTD on required vaccines, gets yearly flu vaccine Functional Status Date Functional Assessmen t No Information Instructions Date Instruction Additional Infor gladysperez I am sending in a Me drol Dosepak for you to start taking.I am also sending a cream for you to apply twice a day.I have given you samples of famotidine 20 mg take this once a day.Continue with Zyrtec.All of these should help clear up your rash.Please call back with an update in a couple days, sooner if symptoms worsen.Okay to continue with the Flonase.Call with any questions or concernsNo labs todayReturn yearly around May Related to Rash and nonspecific skin eruption Disease prevention continue with the current medica tion Related to Generalized anxiety disorder Levels will be checked Related t o Hyperlipidemia, unspecified levels will be check edcontinue with the current supplement Related to Vitamin D deficiency, unspecified routine labs checked todayreturn to id yearlycall me with questions or concernscovid booster later in the fall Related to Encounter for general adult medical examination without abnormal findings Disease process levels will be checked Related t o Vitamin D deficiency, unspecified continue with the me toprololif you feel itis making you sleepy you can take it in the evening Related to Palpitations continue with the We llbutrincall me if you feel your anxiety is getting worse Related to Generalized anxiety disorder routine labs checked todayI will call you with the resultsreturn to id yearlycall id with questions or concerns Related to Encntr for general adult medical exam w/o abnormal findings Disease process I sent the prescript ion for Augmentin twice daily for 7 days to your pharmacy.You can take Tylenol as needed to help with the pain.I would also recommend taking a daily probiotic to prevent antibiotic associated diarrhea as well as yeast infections.Throw away your toothbrush on day 5 of antibiotics and make sure not to share any drinks with others to prevent spreading.Please call us if symptoms do not improve.Follow-up as scheduled for your annual visit Related to Acute pharyngitis, unspecified etiology As above.Given your new urinary symptoms and your chronic bowel issues we will have you evaluated. Related to Family history of ovarian cancer As above Related to Urina ry urgency I will have you leav e me a urine sample. We will have it looked under a microscope to check for blood. We can reflex it to culture meaning if there is bacteria they can send it off for testing to see which antibiotics would be needed.I would like you to be evaluated by a urogynecologist for further testing. I will send an order to Dr. Tray Langston. Related to Urinary stream slowing Continue on the Well butrin.If you notice any new symptoms or feel that you do not tolerate this medication please give me a call. Related to Anxiety Blood pressure is st able.Continue the metoprolol at bedtime.Call with any questions or concernsno bloodwork todayReturn yearly or as needed Related to Essential (primary) hypertension Disease prevention Please taper off you r Lexapro by taking 1 pill every other day for 2 weeks. Simultaneously start your Wellbutrin every day in the morning. I did send a prescription for the Wellbutrin to your pharmacy. Return in 4 weeks to follow-up on the effectiveness of your new medication. I would encourage you to contact your insurance in regards to establishing with a therapist. Please call me with questions or concerns. Related to Generalized anxiety disorder Cholesterol levels h ave been mildly elevated in the past.no need for medication at this timeWe will recheck your levels again today Related to Hyperlipidemia, unspecified hyperlipidemia type Reviewed and updated medical, social, and family history. Medications reviewed and continue as directed.You are up to date on all routine screenings.Mammogram yearlyColonoscopy was normal in 2018 and due again in 2028.Influenza vaccine was administered today.Be sure to update your tetanus vaccine if you are to cut yourself.You are doing a great job with exercising. Keep up the good work.We will check labs today.CBC, CMP, lipid panel, TSH, vitamin D, and urinalysisPlease call the office with any issues, questions, or concerns prior to your next appointment.Follow up again yearly Related to Annual physical exam Continue your vitami n D as prescribed.We will check your vitamin D level again today Related to Vitamin D deficiency Your blood pressure is well controlled today.Continue your current medications Related to Essential (primary) hypertension Disease process Cholesterol levels h ave been mildly elevated in the past.no need for medication at this timeWe will recheck your levels again today Related to Hyperlipidemia, unspecified hyperlipidemia type Continue your vitami n D as prescribed.We will check your vitamin D level again today Related to Vitamin D deficiency Reviewed and updated medical, social, and family history. Medications reviewed and continue as directed.You are up to date on all routine screenings.Mammogram is scheduled.Colonoscopy was normal in 2018 and due again in 2028.Influenza vaccine was administered today.Be sure to update your tetanus vaccine if you are to cut yourself.You are doing a great job with exercising. Keep up the good work.We will check labs today.CBC, CMP, lipid panel, TSH, vitamin D, and urinalysisPlease call the office with any issues, questions, or concerns prior to your next appointment.Follow up again yearly Related to Annual physical exam Well controlled with the Metoprolol.Call with any worsening symptoms Related to Palpitations Your blood pressure is well controlled today.Continue your current medications Related to Essential (primary) hypertension Continue on Lexapro daily as prescribed.We will add in Buspar 5 mg up to 3 times daily as needed.Please call if your anxiety worsens Related to Anxiety Continue with exerci sing.We will see if the Buspar helps better manage your anxiety Related to Insomnia, unspecified type Disease process you are up to date w gopal salazar call Dr. Keane to see when you are due to have nexplanon augustus did express interested in sterilizationCall with any questions or concernslabs at physical in April Continue with social distancing.AVOID CROWDS, STAY 6 FEET APART FROM OTHERS OUTSIDE YOUR HOUSEHOLD, WEAR A MASK, AVOID TOUCHING YOUR FACE, AVOID UNNECESSARY TRAVEL. WASH HANDS OFTEN. CALL WITH QUESTIONS/CONCERNS Related to control counseling Your blood pressure is well controlled on current medicationwe will continue at this timemake sure you are following a healthy, low salt dietI encourage you to exerciseaim for 30 minutes 5 days a week Related to Essential (primary) hypertension well controlled with the Metoprololavoid caffeine.call with any worsening symptoms Related to Palpitations continue on lexapro daily for a few months to see if it helpscall me with questions, concerns, or worseningReturn in April for yearly appt Related to Anxiety Disease process Be sure to get plent y of rest, stay hydrated, try to improve nutritionHighly recommend exercise as tolerated, you can also try yoga, meditation, or essential oilsif you are interested in counselor or psychiatrist let us know - you can also search for one onlineincrease the lexapro to 20 mg daily for a few months to see if it helpscall me with questions or concernsflu shot givenReturn in 6 mo with questions/concerns Related to Anxiety try exercising durin g the day to see if it helps you stay asleep longer Related to Insomnia, unspecified type well controlled with the Metopro lol Related to Palpitations blood pressure is stableno brower es Related to Essential hypertension Disease process well controlled with the Metoprololtry taking it at night to see if it helps with sleep Related to Palpitations try taking the medic ation at night to see if it helpsreturn to me in aprilcall me with questions or concerns Related to Insomnia, unspecified type blood pressure is stableno brower es Related to Essential hypertension fasting labs in Apr ember - cmp cbc tsh lipids to be checkedsee me a week aftercall me with questions or concerns Related to Encounter for general adult medical examination without abnormal findings Disease process Be sure to get plent y of rest, stay hydrated, try to improve nutritionHighly recommend exercise as tolerated, you can also try yoga, meditation, or essential oilsif you are interested in counselor or psychiatrist let us knowCall for any worsening symptoms of anxietyReturn in 4 mocall with questions/concerns Related to Anxiety Blood pressure is at treatment goal on current medicationsmetoprolol has controlled the palpitations as wellContinue current medicationsAvoid salty foods.Increase exercise Related to Essential hypertension alternates with cons tipationfollow with Dr Salcidorepeat colonoscopy in 10 years Related to Chronic diarrhea Disease process Blood pressure is at treatment goal on current diet and medication. Please continue your current treatment.Exercise as above Related to Essential hypertension avoid screen time be fore bedreduce caffeine intakeexercise and meditation as we discussedmelatonin over the counter 10mg at night Related to Insomnia, unspecified type continue imodium as needed according to package directionsprobiotic dailywill send you to the GI specialist Dr Salcido for further evaluation Related to Chronic diarrhea echo and holter adilia cosme completed this springmetoprolol is helping, continue this medicationwill refill medicationwatch for returning symptoms and notify the office Related to Palpitations Continue Lexaprowe w ill refill the medicine todayrecommend consultation with a counselor, if you would like assistance please let us knowwe discussed the benefits of exercise, optimize nutrition, staying hydrated, and adequate sleepwill check labs today and call you with resultsreturn in 3 monthscall with questions/concerns Related to Anxiety Disease process Assessments Type Assessment Date No Information Patient Care Teams Name Effective Dates (start - stop) Status Members No Information
--- OUTSIDE RECORDS SUMMARY | 2024-11-09 08:00 | XMS_ITS | Referral Summary ---
Author Organization [address] Address [address] [place] [id number] Care Team Providers Care Frame Straightener Name Role Phone Darshana Dominguez Primary Care Provider [phone] Chino Casey MD Unavailable [phone] Allergies No known active allergies Medications etonogestrel [...] examination 01/08/2019 Overview (01/08/2019): PMH:10/28/2018 Last pap:09/2018 media monitor Last mammogram:04/2018 Last dexa: Last colonoscopy/cologuard: Last [...] it, Preservative Free, Intramuscular 05/26/2017 Tdap 01/12/2011 Social History Tobacco Use Types Packs/Day Years [...] on file 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
--- OUTSIDE RECORDS SUMMARY | 2024-11-09 08:00 | XMS_ITS | Clinical Summary ---
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 Gender Identity Not on file Sexual Orientation Not on file Plan of Treatment Health Maintenance Due Date Last Done Comments Hepatitis C Virus (HCV) Screening 1977 TdaP Immunization 1977 Hepatitis B Immunization (1 of 3 - 19+ 3-dose series) 1996 Pap Smear 1998 Cervical Cancer Screening (CCS) 2007 HPV/Cotest 2007 Discussion re Starting/Frequency of Mammograms 2017 Colonoscopy 2022 Colorectal Cancer Screening 2022 Influenza Immunization (#1) 2024 10/0 08/2020, 05/02/2020, 07/31/2019, Additional history exists SARS-COV-2 Immunization ( season) 2024 05/13/2021, 11/07/2020, 10/17/2020 Respiratory Syncytial Virus (RSV) Immunization (Adult) (1 - 1-dose 75+ series) 2052 Meningococcal Immunization (ACWY) Aged Out No longer eligible based on patient's age to complete this topic Pneumococcal Immunization Combined Aged Out No longer eligible based on patient's age to complete this topic Rotavirus Immunization Aged Out No lo nger eligible based on patient's age to complete this topic
== END 2024-11-09 07:53 | disposition home or self-care (01) ==
PROVIDERS: PCP Internal Medicine; Visit Provider Obstetrics & Gynecology
DX: Z12.31 Encounter for screening mammogram for malignant neoplasm of breast (principal)
CPT/HCPCS: 77063; 77067